=== PATIENT | male | born 1940 | race Caucasian/White ===

== ENCOUNTER 2016-08-06 03:48 | Inpatient (IN) | payer OTHER ==
[~2016-08-06] VITALS: Ht 170.2 cm; Wt 74.8 kg
[~2016-08-06 03:48] MED LIST: PLAVIX75 M1 PO; PRAVASTATIN SOD20 M2 PO
--- NOTE | 2016-08-06 09:47 | Admission Core Measures ---
Admission Meds I reviewed the following Meds: Current Medications Sig/Malini Start time Last Medication Dose Stop Time Status Admin Acetaminophen 975 MG ONCE 08/06 0000 AC (Tylenol) 08/06 2358 Cefazolin Sodium 2,000 MG ONCE 08/06 NR (Kefzol-Ancef Inj) 08/06 2358 Oxycodone HCl 10 MG ONCE 08/06 0000 NR (Roxicodone) 08/06 2358 Pravastatin Sodium 20 MG 1700 08/06 170 AC (Pravachol) Acute Coronary Syndrome Inclusion Criteria ACS Diagnosis No Inpatient Core Measures LDL Reminder: If No, please order W/I first 24hr of stay Congestive Heart Failure Inclusion Criteria CHF Diagnosis No Cerebrovascular accident Inclusion Criteria CVA/TIA Diagnosis No Inpatient Core Measures Bedside Swallow Eval Reminder: If BSE failed, place ST order Antithrombotic Reminder: Order Antithrombotic Medication by end of day 2 Antithrombotic Reminder: Document Reason Antithrombotic Not ordered by end of day 2 AFIB/Flutter Reminder: If Present, add to problem list AFIB/Flutter Reminder: Order Anticoag Medication for pts with AFIB/Flutter Atherosclerosis Reminder: If Present, add to problem list LDL Reminder: If No, please order W/I first 24hr of stay PT Order Reminder: If No, please order Venous thromboembolism Inpatient Core Measures VTE Risk Factors: Age > 40, [facility] prophylaxis d/t No contraindications No VTE Pharm Prophylaxis d/t No contraindications Inclusion Criteria - Per Current guidelines, there needs to be overlap - treatment for the first 5 days of Warfarin therapy. - Parenteral Anticoagulation (IV or SC) needs to be - given along with Warfarin therapy. VTE Diagnosis No VTE Type NONE VTE Confirmed by (Test) NONE Problem List As ranked by this Provider includes Assessment & Plan 1. S/P total hip arthroplasty HOME MEDS Home Med List Clopidogrel Bisulfate (Plavix) 75 MG TABLET 1 TAB PO DAILY CARTOTID STENOSIS (Reported) Pravastatin Sodium 20 MG TABLET 1 TAB PO DAILY CHOLESTEROL (Reported)
--- NOTE | 2016-08-06 09:49 | Surg Short-stay <48hrs Dis Sum ---
Visit Information Visit Dates Admission Date: 08/06/16 Discharge Date: 08/07/16 Surgical Short Stay DC Summary Admission Diagnosis: HIP PAIN Final Diagnosis: S/P L THR Procedure(s): L THR - see operative report Summary/Significant Findings: Pt underwent L THR on 08/06 and tolerated the procedure well. He was brought to the PACU in stable condition. Post op he was able to void spontaneously, his pain was well controlled with oral pain medication, he worked with PT. He was cleared by PT for discharge home with services. Condition at Discharge: good Discharge Disposition: home health services Discharge instructions provided to patient/family: No Post discharge follow-up plan: Keep scheduled appointment with DR Trujillo. Call sooner if needed
[2016-08-06] MEDS ORDERED: MIRALAX17 G1 PO (09:51)
[2016-08-06] MEDS ORDERED: ASPIRIN EC325 M2 PO (09:51)
[2016-08-06] MEDS ORDERED: COLACE100 M1 PO (09:51)
[2016-08-06] MEDS ORDERED: DILAUDID4 M1 PO (09:51)
[2016-08-06] MEDS ORDERED: MS CONTIN15 M2 PO (09:51)
--- NOTE | 2016-08-06 09:53 | Patient Discharge Instructions ---
Discharge Instructions General Discharge Information You were seen/treated for: Hip pain You had these procedures: total hip replacement Watch for these problems: temp,>101, increased redness or drainage of wounds, inabilty to bear weight Do not soak the wound: Yes Other wound care: Keep incisions clean and dry Special Instructions: Do not take plavix for one month while taking aspirin for blood thinning. Restart plavix in one month, after course of aspirin is complete. Do not take at the same time. Diet Recommended Diet: Heart Healthy Activity Activity Self Limited: Yes Activity Limited to: Weight bear as tolerated Acute Coronary Syndrome Inclusion Criteria At DC or during hospital stay patient has or had the following: ACS DIAGNOSIS No Discharge Core Measures Meds if any: Prescribed or Continued at Discharge Meds if any: NOT Prescribed or Continued at Discharge Congestive Heart Failure Inclusion Criteria At DC or during hospital stay patient has or had the following: CHF DIAGNOSIS No Discharge Core Measures Meds if any: Prescribed or Continued at Discharge Meds if any: NOT Prescribed or Continued at Discharge Cerebrovascular accident Inclusion Criteria At DC or during hospital stay patient has or had the following: CVA/TIA Diagnosis No Discharge Core Measures Meds if any: Prescribed or Continued at Discharge Meds if any: NOT Prescribed or Continued at Discharge Venous thromboembolism Inclusion Criteria VTE Diagnosis No VTE Type NONE VTE Confirmed by (Test) NONE Discharge Core Measures - Per Current guidelines, there needs to be overlap - treatment for the first 5 days of Warfarin therapy. - If discharged on Warfarin prior to 5 days of - overlap therapy, the patient will need to be - assessed for post discharge needs including - *Post discharge parental anticoagulation - *Warfarin and/or parental anticoagulation education - *Follow up date to check INR post discharge At least 5 days overlap therapy as Inpatient No Meds if any: Prescribed or Continued at Discharge Note: Overlap Therapy is Warfarin and Anticoagulant Meds if any: NOT Prescribed or Continued at Discharge
--- NOTE | 2016-08-06 12:07 | RADIOLOGY REPORT ---
EXAMINATION: XR HIP, LEFT CLINICAL INFORMATION: Hip replacement COMPARISON: None TECHNIQUE: 2 view of the left hip. FINDINGS: 2 part replacement on the left. Good visual result. No acute fracture. IMPRESSION: 2 part left hip replacement. Good visual result. No acute fracture
--- NOTE | 2016-08-06 13:13 | PN- Orthopedic ---
Subjective Subjective: Post op check Awake and alert post op No complaints currently Pain is well controlled, no nausea Has not ambulated with PT yet. Objective Vital Signs and I&Os VSS, afebrile Has not voided yet General: alert and oriented times three Chest: clear anteriorly bilaterally, RRR Abd; soft, good bs Ext: warm, no edema, positive sensate, no calf tenderness, 5/5 MARCELLE BLE Wound: dressed, dry, ice pack to incision Assessment/Plan Assessment/Plan 76 yo male s/p L THR Pain management PT - WBAT fu void fu after ambulation. Plan to dc once cleared by PT ASA 325mg po bid for dvt ppx - hold plavix while pt is taking asa Core Measures/Miscellaneous Venous Thromboembolism VTE Risk Factors: Age > 40, Surgery VTE Contraindications: No Contraindications VTE Diagnosis: No VTE Type: NONE VTE Confirmed by (Test): NONE Beta Vega Is Beta Vega a Home Med? No Antibiotics Is Patient on Antibiotics? Yes If Yes: prophylaxis (24 hrs)
--- NOTE | 2016-08-06 16:09 | NUR ---
PHYSICAL THERAPY: SPOKE TO PATIENT AND WHO PREFER TO STAY THE NIGHT; DEFERRING STAIR TRIAL AT THIS TIME. TRANSPORT PRESENT TO TAKE Pt TO 225. Pt AND FAMILY EDUCATED ON DISCHARGE PLANNING, ROLE OF P.T. IN ACUTE SETTING, AND SAFE MOBILITY. Pt AGREEABLE TO USE RW WITH NURSING STAFF OVERNIGHT TO AMB W/IN ROOM >BATHROOM, REVIEWED AND DEMONSTRATED HOME EXERCISE PROGRAM. Pt PREVIOUSLY EVALUATED EARLIER TODAY; WILL F/U APPROPRIATE TOMORROW FOR STAIR TRAINING IN PREPARATION FOR D/C HOME.
[2016-08-06 16:23] VITALS: BP 150/70
--- NOTE | 2016-08-06 16:45 | Operative Report ---
Operative/Inv Procedure Report Surgery Date: 08/06/16 Name of Procedure: Left total hip replacement Pre-Operative Diagnosis: Primary left hip DJD Post-Operative Diagnosis: Same Estimated Blood Loss: 250 Surgeon/Pipeline Superintendent Division: JOHNY ONEILL,MARCIAL Santillan Anesthesia: block Operative/Procedure Note Note: Description of Procedure: The patient was taken to the operating room and positively identified. After induction of spinal anesthesia and administration of appropriate pre-operative antibiotics, the patient was positioned supine on the operating room table and all bony prominences were well padded. After performing a surgical timeout, the left lower extremity was prepped and draped in the usual sterile fashion. A direct anterior approach was made to the left hip. The incision was carried sharply through superficial soft tissues to the level of the fascia. Meticulous hemostasis was maintained with Bovie electocautery. The fascia over the tensor fascia felipe muscle was opened sharply and the interval between the TFL and the sartorius was entered bluntly taking care to stay lateral to the lateral femoral cutaneous nerve. Retractors were placed around the femoral neck and the pericapsular fat was identified. The ascending branches of the lateral femoral circumflex vessels were identified and carefully coagulated. The pericapsular fat and anterior capsule were then resected. A napkin ring osteotomy was performed and the femoral head was removed without difficulty. Attention was then turned to the acetabulum. After appropriate placement of retractors, the acetabulum was exposed. Soft tissue was cleaned from the acetabular margin and notch. Overhanging osteophytes were removed and the teardrop was exposed. The acetabulum was then sequentially reamed to accept a 56 mm Greenback Tritanium hemispherical solid back shell. This was impacted into place in the appropriate position and fitted with a 36 mm Trident X3 zero degree polyethylene insert. Attention was then turned to the femur. After performing the appropriate ligament releases, the proximal femur was exposed. It was then sequentially broached to accept a size 3 Greenback Accolade 2 stem. This was trialed for leg length and stability. The trial component was removed and the final component was impacted into place. The trunnion was carefully cleaned and fit with a 36 mm,+ 2.5 Biolox delta ceramic femoral head. The hip was reduced and put through a full range of motion and found to be stable. The articular space was then irrigated with sterile saline. The periarticular soft tissues were infilitrated with Marcaine. The fascial layer was closed with interrupted #1 vicryl suture and the skin was re-approximated with interrupted 2 -0 vicryl. The skin was closed with a running 3-0 V-Lock suture. Steri-strips and a sterile dressing were applied. The patient was awakened and taken to the recovery room in satisfactory condition.
[2016-08-06 18:59] VITALS: BP 122/64
[2016-08-06 22:34] VITALS: BP 120/50
--- NOTE | 2016-08-06 22:57 | NUR ---
LATE ENTRY FOR ADMISSION NOTE S/P PACU. PT A/O X 3, ON RA, DRESSING TO LEFT HIP CD+I. +CMS. ALPS IN PLACE. AMBULATED IN ROOM AND IN HALLWAY WITH A X 1 AND RW. VSS. VOIDING WNL IN HAT IN TOLIET-CLEAR YELLOW URINE. IVF INFUSING ORDERED. TOLERATING PO FLUIDS AND DINNER WELL. DENIES PAIN. WILL CONTINUE TO MONITOR
[2016-08-07 02:00] VITALS: BP 130/58
[2016-08-07 06:58] VITALS: BP 106/50
[2016-08-07 08:08] LABS: ABSOLUTE BASOPHIL COUNT 0 /CUMM (0.0-0.2); ABSOLUTE EOSINOPHIL COUNT 0 /CUMM (0.0-0.7); ABSOLUTE GRANULOCYTE CT 7.6 /CUMM (1.4-6.5); ABSOLUTE LYMPH COUNT 1.2 /CUMM (1.2-3.4); ABSOLUTE MONOCYTE COUNT 0.7 /CUMM (0.10-0.60); BASOPHIL % 0.1 % (0.0-2.0); EOSINOPHIL % 0 % (0-5); HEMATOCRIT 28.1 % (42-52); MEAN CORPUSCULAR HGB 30.5 PG (27.0-31.0); MEAN CORPUSCULAR HGB CONC 33.8 G/DL (33.0-37.0); MEAN CORPUSCULAR VOLUME 90.2 FL (80.0-94.0); MEAN PLATELET VOLUME 8.7 FL (7.4-10.4); PLATELET COUNT 137 /CUMM (130-400); RBC DISTRIBUTION WIDTH 13.1 % (11.5-14.5); RED BLOOD CELL CT 3.11 /CUMM (4.70-6.10); WHITE BLOOD CELL COUNT 9.5 /CUMM (4.8-10.8)
--- NOTE | 2016-08-07 08:47 | PN- Orthopedic ---
Subjective Subjective: Patient's pain is controlled, he performed a physical therapy and was cleared. He would like to be discharged home. No fever no flulike illness no chest pain no shortness of breath. Objective Vital Signs and I&Os Vital Signs Date Time Temp Pulse Resp B/P B/P Pulse O2 O2 Flow FiO2 Mean Ox Delivery Rate 08/07 0558 97.6 65 20 106/50 95 Room Air 08/07 0200 97.7 65 20 130/58 96 Room Air 08/06 2234 97.5 63 20 120/50 96 08/06 1859 97.4 67 18 122/64 99 08/06 1623 97.5 75 16 150/70 97 Intake & Output 08/07 0000 08/06 1600 08/06 0000 Intake Total 850 Output Total 600 800 Balance 250 -800 Intake, IV 800 Intake, Oral 50 Number 0 Bowel Movements Output, Urine 600 800 Patient 165 lb Weight Physical Exam: Well-developed well-nourished no apparent distress. HEENT: Atraumatic, extraocular motion intact Neck: Supple, no lymphadenopathy Respiratory: No respiratory distress Extremities: No edema Left lower extremity hip dressing in place, Dressing clean dry and intact Mild thigh edema No signs of infection. No shortening or rotation Hip range of motion is limited and without unexpected pain Neurovascularly intact distally Bilateral calves are supple, nontender. Neuro: Alert and oriented x3 Psych: Mood affect normal, normal memory normal judgment. Skin: Warm and dry, no rash on exposed skin Results Last 48 Hours of Labs: Laboratory Tests 08/08 619 Chemistry Sodium (137 - 145 mmol/L) 136 L Potassium (3.5 - 5.1 mmol/L) 4.4 Chloride (98 - 107 mmol/L) 104 Carbon Dioxide (22 - 30 mmol/L) 26 Anion Gap (5 - 16) 6 BUN (9 - 20 mg/dL) 25 H Creatinine (0.7 - 1.2 mg/dL) 1.1 Estimated GFR (>60 ml/min) > 60 BUN/Creatinine Ratio (7 - 25 %) 22.7 Hematology CBC w Diff Pending WBC Pending RBC Pending Hgb Pending Hct Pending MCV Pending MCH Pending RDW Pending Plt Count Pending MPV Pending PUBS MCHC Pending Assessment/Plan Assessment/Plan Postoperative day #1 status post left total hip arthroplasty anterior approach. Patient was cleared by physical therapy, he is comfortable, his pain was controlled, CBC is pending this morning, if stable, patient may be discharged home today with VNA services. Continue aspirin for DVT prophylaxis, pain medication as needed Core Measures/Miscellaneous Venous Thromboembolism VTE Risk Factors: Age > 40, Surgery VTE Contraindications: No Contraindications VTE Diagnosis: No VTE Type: NONE VTE Confirmed by (Test): NONE Beta Vega Is Beta Vega a Home Med? No Antibiotics Is Patient on Antibiotics? Yes If Yes: prophylaxis (24 hrs)
== END 2016-08-07 10:14 | disposition home health service (06) | DRG 470 ==
LOC: SDA 03:48 → ENRESERV 15:03 → 2NA 16:33 → ENPENDDIS 08-07 09:18 → 2NA 08-07 10:14
PROVIDERS: Physician Assistant Surgical; ADMIT Orthopaedic Surgery
PROC: 0SRB04A Replacement of Left Hip Joint with Ceramic on Polyethylene Synthetic Substitute, Uncemented, Open Approach (ICD-10-PCS; principal; 2016-08-06)
DX: M16.12 Unilateral primary osteoarthritis, left hip (principal); I65.22 Occlusion and stenosis of left carotid artery; I10 Essential (primary) hypertension; E78.5 Hyperlipidemia, unspecified
CPT/HCPCS: 2NAP; 73502-LT; 82436; 88304; 97110-GO; 97116-GO; 97161-GP; 97530-GO; J0690; J0735; J1100; J2405; J7042